=== PATIENT | male | born 1945 | race Caucasian/White ===

== ENCOUNTER 2017-04-06 13:55 | Emergency (ER) | payer OTHER ==
[2017-04-06 14:03] VITALS: BP 149/79; PULSE 70; TEMP 97.8; BMI 36.3
--- NOTE | 2017-04-06 15:03 | PDOC ---
History of Present Illness - General Chief Complaint: Urinary Problem Stated Complaint: POSSIBLE UTI Time Seen by Provider: 04/06/17 14:44 History Source: Patient Exam Limitations: No Limitations - History of Present Illness Travel History: No Initial Comments: 04/06/17 14:58 71 yr male with history of UTI presents with foul smelling urine for 4 days. no fever no chills neg nvd, neg back pain. Pt has bladder stimulator which will be removed on Apr 18. Pt has history of chronic Lyme, hypothyroid, urine incontinence. Timing/Duration: reports: constant Quality: reports: mild Pain Radiation: reports: no radiation Activities at Onset: reports: none Past History - Past Medical History Allergies/Adverse Reactions: Allergies Allergy/AdvReac Type Severity Reaction Status Date / Time codeine Allergy Vomiting Verified 04/06/17 13:57 Home Medications: Ambulatory Orders Furosemide [Lasix -] 40 mg PO DAILY 03/23/16 Gemfibrozil 600 mg PO BID 03/23/16 Levothyroxine [Synthroid -] 25 mcg PO DAILY 03/23/16 Ciprofloxacin [Cipro (Restricted To Id)] 500 mg PO Q12H #14 tablet 04/06/17 Anemia: No Asthma: No GI Disorders: Yes (ENLARGED PROSTRATE,INCOTINENCE) HTN: Yes Hypercholesterolemia: Yes Thyroid Disease: Yes (THYROID NODULE) - Surgical History Cholecystectomy: Yes - Psycho/Social/Smoking Cessation Hx Suicidal Ideation: No Smoking History: Never smoked Hx Alcohol Use: No Drug/Substance Use Hx: No Substance Use Type: None *Physical Exam - Vital Signs Last Vital Signs Temp Pulse Resp BP Pulse Ox 97.8 F 70 19 149/79 99 04/06/17 13:57 04/06/17 13:57 04/06/17 13:57 04/06/17 13:57 04/06/17 13:57 - Physical Exam General Appearance: Yes: Nourished, Appropriately Dressed HEENT: positive: EOMI, DANNIE Respiratory/Chest: positive: Lungs Clear, Normal Breath Sounds Cardiovascular: positive: Regular Rhythm, Regular Rate Gastrointestinal/Abdominal: positive: Normal Bowel Sounds, Soft. negative: Tender Extremity: positive: Normal Inspection Integumentary: positive: Normal Color, Dry, Warm Neurologic: positive: Fully Oriented, Alert, Normal Mood/Affect, Normal Response , Motor Strength 5/5 Medical Decision Making - Medical Decision Making 04/06/17 16:14 cc: foul smelling urine with frequency, history of bladder stimulator, frequent UTI, incontinence tested urine at home showed positive nitrite, positive bacteria pt denies fever no chills, non toxic appearing no back or flank pain will check UA and culture *DC/Admit/Observation/Transfer Diagnosis at time of Disposition: Urinary tract infection Qualifiers: Urinary tract infection type: acute cystitis Hematuria presence: without hematuria Qualified Code(s): N30.00 - Acute cystitis without hematuria - Discharge Dispostion Disposition: HOME Condition at time of disposition: Good - Prescriptions Prescriptions: Ciprofloxacin [Cipro (Restricted To Id)] 500 mg PO Q12H #14 tablet - Patient Instructions Additional Instructions: please drink pleanty of fluids to stay well hydrated take the antibiotic as prescribed follow with your urologist as scheduled return if any fever, chills, vomiting, back pain or any other concerns
[2017-04-06 15:10] LABS: URINE APPEARANCE CLOUDY; URINE BILIRUBIN NEGATIVE (NEGATIVE); URINE BLOOD 1+ (NEGATIVE); URINE COLOR YELLOW; URINE GLUCOSE (UA) NEGATIVE (NEGATIVE); URINE KETONE NEGATIVE (NEGATIVE); URINE NITRITE NEGATIVE (NEGATIVE); URINE UROBILINOGEN NEGATIVE mg/dL (0.2-1.0)
[2017-04-06 16:00] LABS: URINE LEUK ESTERASE 3+ (NEGATIVE); URINE PROTEIN 3+ (NEGATIVE)
[2017-04-06 16:10] LABS: URINE BACTERIA FEW /hpf (NONE SEEN); URINE RBC 6 /hpf (0-3); URINE WBC 494 /hpf (3-5)
--- NOTE | 2017-04-09 21:01 | PDOC ---
Patient Follow-up (Call Back) - Post ED Follow - Up Chief Complaint: uti Condition at time of discharge: Good Disposition at time of original discharge: HOME Reason for Call Back: Abnwl. Microbiology Signs/Symptoms Improved: (on cipro. urine culture > 100k ecoli sensitive to cipro)
== END 2017-04-06 16:35 | disposition home or self-care (01) ==
LOC: JERFT 13:55
DX: N30.00 Acute cystitis without hematuria (principal); I10 Essential (primary) hypertension; E78.00 Pure hypercholesterolemia, unspecified; E03.9 Hypothyroidism, unspecified; Z96.0 Presence of urogenital implants
CPT/HCPCS: 81003; 81015; 87086; 87186; 99281-25

== ENCOUNTER 2017-04-18 11:17 | Day surgery (SDC) | payer OTHER ==
[2017-04-17 17:10] VITALS: BMI 35.2
--- NOTE | 2017-04-18 13:59 | HP ---
History & Physical Update - History History: No Change - Physical Physical: No Change - Assessment Assessment: No Change - Plan Plan: No Change
[2017-04-18] MEDS ORDERED: IBUPROFEN 800 MG/8 ML IJ IVPB PRN (14:01)
[2017-04-18] MEDS ORDERED: ACETAMINOPHEN 1000 MG/100 ML VIAL (NON FORMULARY) IVPB ONE (14:02)
[2017-04-18] MEDS ORDERED: LIDOCAINE HCL 1%, 10 MG/ML (20ML VIAL) ONE (14:05)
[2017-04-18] MEDS ORDERED: DEXTROSE 5%-0.45% SALINE 1,000 ML IV SCH (14:15)
[2017-04-18] MEDS ORDERED: ceFAZolin SODIUM 1 GM VIAL IVPB ONE (14:30)
[2017-04-18] MEDS ORDERED: PROPOFOL 20 ML ONE (14:33)
[2017-04-18] MEDS ORDERED: BACITRACIN 50,000 UNITS VIAL TP ONE (14:43)
[2017-04-18] MEDS ORDERED: LIDOCAINE HCL 1%, 10 MG/ML (20ML VIAL) INF ONE (14:43)
[2017-04-18 15:49] VITALS: TEMP 98
[2017-04-18] MEDS ORDERED: ACETAMINOPHEN INJECTION 100 ML IVPB ONE (15:58)
[2017-04-18] MEDS ORDERED: ONDANSETRON 4 MG/2 ML VIAL IVPUSH PRN (18:07)
[2017-04-18] MEDS ORDERED: LACTATED RINGERS SOLUTION 1,000 ML IV SCH (18:15)
[2017-04-18 19:01] VITALS: BP 131/74; PULSE 70
--- NOTE | 2017-04-19 12:10 | OP ---
DATE OF OPERATION: 04/18/2017 PREOPERATIVE DIAGNOSIS: Urge urinary incontinence. POSTOPERATIVE DIAGNOSIS: Urge urinary incontinence. PROCEDURE: Removal of InterStim lead and battery SURGEON: Antione Aleman MD ESTIMATED BLOOD LOSS: Minimal. SPECIMEN: Lead and battery. IV SEDATION: Local. ANESTHESIOLOGIST: Keisha Meléndez MD PREOPERATIVE INDICATIONS: The patient is a 71-year-old male with urge urinary incontinence, which has been treated with InterStim implant; however, he now has a progressively worsening neurological condition, which requires MRI surveillance and cannot have these MRIs with the implant in place. He comes to the OR for removal. DESCRIPTION OF PROCEDURE: The patient was brought to the OR, placed on the table in prone position. All pressure points were protected. The back was prepped and draped sterilely. The patient was given IV sedation and IV antibiotics. Local anesthesia was instilled into the previous battery incision into the insertion of the wire. The battery pocket was opened. The blade and the battery identified and removed. The insertion point of the wire was also identified. A small incision was made over the paramedian of the sacrum, and the lead was grasped. It was pulled out with a Nikki clamp en toto. No remaining part of the device were left in the patient. These were sent off for pathological confirmation. The incisions were closed in 2 layers with 3-0 and 4-0 suture. The wounds were dressed. The patient was woken up. Griselda [id number]
--- NOTE | 2017-04-20 13:32 | PATH ---
Surgical Pathology Report Patient Name: KYRA SKY Med. Rec. #: [id number] /Age/Gender: 1945 (Age: 71) / M Account: [id number] Location: [facility] Taken: 04/18/2017 Received: 04/19/2017 Reported: 04/20/2017 Physicians: Antione Aleman M.D. Specimen(s) Received OLD INTERSTIM Clinical History Incontinence, nonfunctioning InterStim Final Diagnosis OLD INTERSTIM, REMOVAL: COMPUTER SCIENCE INSTRUCTOR (GROSS EXAM). Electronically Signed Miah Schwab M.D. Gross Description Received dry labeled "old InterStim"is a 5 x 4.4 x 0.8 cm metallic and plastic medical office scheduler designated [employer] InterStim 2. Also present within the specimen container is a 25 cm long x 0.1 cm in diameter portion of metallic wire with a plastic coating. This is for gross identification only. [facility]/04/19/2017 [facility]/04/19/2017
== END 2017-04-18 17:30 | disposition home or self-care (01) ==
LOC: JASU-SURG 11:17
PROVIDERS: ATTEND Urology
PROC: 0JPT0MZ Removal of Stimulator Generator from Trunk Subcutaneous Tissue and Fascia, Open Approach (ICD-10-PCS; 2017-04-18)
PROC: 01PY0MZ Removal of Neurostimulator Lead from Peripheral Nerve, Open Approach (ICD-10-PCS; principal; 2017-04-18 13:00)
DX: N39.41 Urge incontinence (principal)
CPT/HCPCS: 94760